=== PATIENT | male | born 1960 | race African-American/Black ===

== ENCOUNTER 2017-10-28 16:27 | Emergency (ER) | payer BC ==
[~2017-10-28] VITALS: Ht 180.3 cm; Wt 99.8 kg
[2017-10-28 16:39] VITALS: BP_SYST 134
[2017-10-28] MEDS ORDERED: IBUPROFEN 600 MG TABLET PO ONE (18:00)
[2017-10-28 19:11] LABS: BILIRUBIN,URINE 1+ (NEGATIVE); BLOOD, URINE NEGATIVE (NEGATIVE); CLARITY/URINE CLEAR (CLEAR); COLOR,URINE YELLOW (YELLOW); GLUCOSE,URINE NEGATIVE (NEGATIVE); KETONES,URINE 2+ (NEGATIVE); LEUKOCYTE ESTERASE ,URINE NEGATIVE (NEGATIVE); NITRITE, URINE NEGATIVE (NEGATIVE); PH,URINE 5.5 (5.0-8.0); PROTEIN URINE 1+ (NEGATIVE)
[2017-10-28 19:17] LABS: BACTERIA,URINE MODERATE /HPF (None Seen); RBC,URINE 0-3 /HPF (0-3); WBC,URINE 0-3 /HPF (0-3)
[2017-10-28 19:18] LABS: MUCUS,URINE 1+ /LPF (None Seen)
[2017-10-28 20:07] VITALS: BP_SYST 125
== END 2017-10-28 20:07 | disposition home or self-care (01) ==
LOC: SED 16:27
DX: S39.011A Strain of muscle, fascia and tendon of abdomen, initial encounter (principal); R03.0 Elevated blood-pressure reading, without diagnosis of hypertension; X58.XXXA Exposure to other specified factors, initial encounter; Y93.89 Activity, other specified; Y92.89 Other specified places as the place of occurrence of the external cause; Y99.8 Other external cause status
CPT/HCPCS: 81000-TC; 87086; 99284